=== PATIENT | female | born 1995 | race Caucasian/White ===

== ENCOUNTER → 2017-06-24 | Outpatient (CLI) | payer BC ==
[2017-06-24 13:14] LABS: FREE T4 0.99 NG/DL (0.78-1.33)
[2017-06-24 13:15] LABS: FOLLICLE STIMULATING HORMONE 4.2 mIU/mL; LUTEINIZING HORMONE 9.2 mIU/mL; PROLACTIN 10.9 NG/ML
[2017-06-24 13:15] LABS: ESTRADIOL 36.1 PG/ML
== END ==
LOC: M LAB 11:51
DX: N93.9 Abnormal uterine and vaginal bleeding, unspecified (principal)
CPT/HCPCS: 83001

== ENCOUNTER → 2017-08-07 | Outpatient (CLI) | payer BC ==
[2017-08-08 15:26] LABS: HIV 1&2 SCREEN CENTAUR NEGATIVE (NEGATIVE)
== END ==
LOC: M WUC 16:19
DX: R30.0 Dysuria (principal)

== ENCOUNTER → 2017-08-07 | Outpatient (REF) | payer BC ==
[2017-08-07 19:56] LABS: CHLAMYDIA DNA AMPLIFICATION NEGATIVE (NEGATIVE); GC DNA AMPLIFICATION NEGATIVE (NEGATIVE)
== END ==
LOC: M LAB REF 18:21
DX: R30.0 Dysuria (principal)
CPT/HCPCS: 87086